=== PATIENT | male | born 1945 | race Hispanic/Latino ===

== ENCOUNTER 2018-07-11 18:17 | Inpatient (IN) | payer OTHER ==
--- NOTE | 2017-07-14 17:00 | NUR ---
REFERRAL TO [facility] PER FAMILY REQUEST, PARMINDER/REFERRAL TO [facility] . PASSR DONE, PENDING TO BE FAXED.
[~2018-07-11] VITALS: Ht 175.3 cm; Wt 80.0 kg
[~2018-07-11 18:17] MED LIST: EPINEPHRINE 0.1 MG/ML 10 ML SYG IVP ONE
[2018-07-11 18:56] LABS: BASOPHILS % (AUTO) 1.8 % (0.0-5.0); EOSINOPHILS % (AUTO) 0.6 % (0.0-8.0); HEMATOCRIT 44.9 % (42-54); LYMPHOCYTES % (AUTO) 16.9 % (21.0-51.0); MEAN CORPUSCULAR HEMOGLOBIN 35.4 pg (27.0-33.0); MEAN CORPUSCULAR HGB CONC 34.2 g/dL (32.0-36.0); MEAN CORPUSCULAR VOLUME 103.4 fL (79-99); MONOCYTES % (AUTO) 4.4 % (3.0-13.0); NEUTROPHILS % (AUTO) 76.3 % (40.0-77.0); NUCLEATED RED BLOOD CELLS 0.1 % (0.0-0.19); PLATELET COUNT (AUTO) 88 K/uL (130-400); RED BLOOD CELL COUNT(AUTO) 4.34 MIL/uL (4.50-6.20); RED CELL DISTRIBUTION WIDTH 15.5 % (11.0-15.5); WHITE BLOOD COUNT (AUTO) 7.7 K/uL (4.8-10.8)
[2018-07-11 19:08] LABS: CARBON DIOXIDE 26 mmol/L (21-32); CHLORIDE 111 mmol/L (101-111); CREATININE 0.8 mg/dL (0.5-1.5); GLOMERULAR FILTR. RATE CALC 101 mL/min (>60); GLUCOSE,RANDOM 235 mg/dL (70-105); POTASSIUM 3.3 mmol/L (3.5-5.1); SODIUM SERUM 147 mmol/L (136-145); UREA NITROGEN, BLOOD 14 mg/dL (7-18)
[2018-07-11 19:09] LABS: INR 1.4 (0.85-1.15); PARTIAL THROMBOPLASTIN TIME 30.3 SEC (26.3-35.5); PROTHROMBIN TIME 14.6 SEC (9.6-11.6)
[2018-07-11 19:29] LABS: ALANINE AMINOTRANSFERASE 18 U/L (12-78); ALBUMIN 2.3 g/dL (3.5-5.0); ASPARTATE AMINOTRANSFERASE 34 U/L (10-37); BILIRUBIN,TOTAL 3.4 mg/dL (0.2-1.0); CREATINE KINASE, TOTAL 37 U/L (21-232); MYOGLOBIN 28 ng/mL (10-92); TOTAL PROTEIN, SERUM 6.7 g/dL (6.0-8.3); TROPONIN I < 0.04 ng/mL (0.00-0.06)
[2018-07-11] MEDS ORDERED: LEVOFLOXACIN 500 MG/D5W 100 ML 100 ML ONE (19:44)
[2018-07-11] MEDS ORDERED: ACETAMINOPHEN 650 MG SUPPOSITORY RC ONE (21:21)
[2018-07-11] MEDS ORDERED: LACTULOSE 20 GM/30 ML UDCUP ONE (21:21)
[2018-07-11 21:50] LABS: APPEARANCE,URINE Clear (CLEAR); BILIRUBIN,URINE Negative (NEGATIVE); COLOR,URINE Yellow (YELLOW); GLUCOSE, URINE (UA) >=1000 mg/dL (NEGATIVE); KETONES,URINE Negative (NEGATIVE); LEUKOCYTE ESTERASE ,URINE Small (NEGATIVE); NITRATE,URINE Negative (NEGATIVE); OCCULT BLOOD,URINE Moderate (NEGATIVE); PH,URINE 6.5 (5.0-8.0); PROTEIN,URINE Negative (NEGATIVE)
[2018-07-11 21:59] LABS: BACTERIA,URINE Rare /HPF (None Seen); RBC,URINE 26-50 /HPF (0-1); YEAST,URINE BUDDING Rare /HPF (None Seen)
[2018-07-11 22:02] LABS: SQUAMOUS EPITHELIAL CELL,UR Rare /HPF (0-2)
[2018-07-11] MEDS ORDERED: CEFTRIAXONE SODIUM 1 GM ONE (22:45)
[2018-07-11] MEDS ORDERED: POTASSIUM CHLORIDE 20MEQ/100ML 100 ML IV PRN (23:45)
[2018-07-11] MEDS ORDERED: GLUCAGON 1MG KIT 1 MG ML IM PRN (23:45)
[2018-07-11] MEDS ORDERED: LIDOCAINE HCL-MPF 1% 2ML VIAL IVP PRN (23:45)
[2018-07-11] MEDS ORDERED: DEXTROSE 50%-WATER 50 ML DISP.SYRIN IV PRN (23:45)
[2018-07-11] MEDS ORDERED: MAGNESIUM 2GM PREMIX 50ML 50 ML IV PRN (23:45)
[2018-07-11] MEDS: SODIUM CHLORIDE 0.9% 1000ML 1,000 ML IV SCH (23:48)
[2018-07-12] MEDS ORDERED: LACTULOSE 20 GM/30 ML UDCUP GT SCH
[2018-07-12] MEDS ORDERED: ACETAMINOPHEN ELIXIR 650 MG/20.3 ML UDCUP PEG PRN
[2018-07-12] MEDS ORDERED: ONDANSETRON HCL 4 MG/2 ML VIAL IV PRN
[2018-07-12] MEDS ORDERED: ZOSYN 3.375GM+NS 50ML 50 ML IV ONE ×2 (00:26→08:16)
[2018-07-12 01:23] LABS: HEMOGLOBIN A1C 5.3 % (4.0-6.0)
[2018-07-12] MEDS ORDERED: MAGNESIUM 2GM PREMIX 50ML 50 ML IV ONE (03:39)
[2018-07-12] MEDS ORDERED: ACETAMINOPHEN ELIXIR 650 MG/20.3 ML UDCUP ONE (06:28)
[2018-07-12] MEDS ORDERED: LACTULOSE 20 GM/30 ML UDCUP ONE ×3 (06:28→16:24)
[2018-07-12 06:44] LABS: HEMATOCRIT 42.5 % (42-54); MEAN CORPUSCULAR HEMOGLOBIN 35.7 pg (27.0-33.0); MEAN CORPUSCULAR HGB CONC 34.9 g/dL (32.0-36.0); MEAN CORPUSCULAR VOLUME 102.1 fL (79-99); PLATELET COUNT (AUTO) 79 K/uL (130-400); RED BLOOD CELL COUNT(AUTO) 4.16 MIL/uL (4.50-6.20); RED CELL DISTRIBUTION WIDTH 15.7 % (11.0-15.5); WHITE BLOOD COUNT (AUTO) 6.8 K/uL (4.8-10.8)
[2018-07-12 06:52] LABS: ALBUMIN 2.2 g/dL (3.5-5.0); BILIRUBIN,TOTAL 3.1 mg/dL (0.2-1.0); CREATININE 0.7 mg/dL (0.5-1.5); MAGNESIUM 2.4 mg/dL (1.80-2.40); TOTAL PROTEIN, SERUM 6.4 g/dL (6.0-8.3)
[2018-07-12 06:57] LABS: POTASSIUM 2.9 mmol/L (3.5-5.1)
[2018-07-12] MEDS ORDERED: LIDOCAINE HCL-MPF 1% 2ML VIAL ONE ×2 (06:58→12:01)
[2018-07-12] MEDS ORDERED: POTASSIUM CHLORIDE 10MEQ/100ML 100 ML IV ONE ×2 (06:58→08:46)
[2018-07-12 07:31] LABS: BASOPHILS % (MANUAL) 1 % (0-2); LYMPHOCYTES % (MANUAL) 12 % (22-44); MAN.DIFF COMMENT-IMPRESSION MANUAL DIFFERENTIAL; MONOCYTES % (MANUAL) 7 % (2-9); REACTIVE LYMPHOCYTES 1 % (0-0); SEGMENTED NEUTROPHILS % 79 % (40-70)
[2018-07-12 07:32] LABS: PLATELET MORPHOLOGY COMMENT DECREASED
[2018-07-12] MEDS ORDERED: FAMOTIDINE/PF 20 MG/2 ML VIAL IV ONE (08:17)
[2018-07-12] MEDS: FAMOTIDINE/PF 20 MG/2 ML VIAL IV SCH ×2 (09:00→20:31)
[2018-07-12] MEDS ORDERED: LACTULOSE 20 GM/30 ML UDCUP PO STA (09:57)
--- NOTE | 2018-07-12 11:50 | NUR ---
[facility] [place] Pt is extremely hard of learing. EUN called daughter Silvana Gamble [phone]. Silvana states she is MPOA, and pt lives with her. Eun requested copy of MPOA for chart, daughter to provide. Daughter states pt is over income for provider services, and she is primary caregiver for pt. Pt reports pt is bed bound and she requires assist to get pt out of bed for showers or w/c. Daughter states pt was supposed to start PT with [facility] today. Daughter now requesting [place] pt qual[place]. pt has walker, w/c, shwr chr, bsc,hospital bed, nebulizer. CM to follow and assist with placement if pt qualifies Addendum: 07/12/18 at 1154 by ALONSO PATTERSON Amended: Links added.
[2018-07-12] MEDS ORDERED: IPRATROPIUM/ALBUTEROL SULFATE 3 ML SOLUTION IH ONE ×2 (11:51→18:07)
[2018-07-12] MEDS ORDERED: POTASSIUM CHLORIDE 20MEQ/100ML 100 ML IV ONE (12:02)
[2018-07-12] MEDS ORDERED: LACT10SO9 PEG (13:44)
[2018-07-12 17:07] VITALS: BP 132/81
[2018-07-12] MEDS: INSULIN HUMULIN R 100 UNIT/ML 3ML SQ SCH (18:00)
--- NOTE | 2018-07-12 18:25 | NUR ---
Nutrition Intervention: Nutrition notification for tf recommendations. Pt admitted for hepatic encephalopathy, UTI. Recommendations: Suplena @ 45ml/hr with 130ml flush Q6H. GONZALO to continue monitoring pt's nutritional status for continued intervention. Addendum: 07/12/18 at [address] Amended: Links added.
[2018-07-12] MEDS: ZOSYN 3.375GM+NS 50ML 50 ML IV SCH (18:44)
[2018-07-12] MEDS: LACTULOSE 20 GM/30 ML UDCUP GT SCH ×2 (18:44→20:32)
--- NOTE | 2018-07-12 18:47 | NUR ---
TF preferences: Spoke to pt's daughter about RD recommendations. Pt's daughter prefers pt stays on home formula as it is organic and has been the only formula that keeps his blood sugars stable. RD reviewed pt's home formula, appropriate for pt. RD has encouraged daughter to give pt 4 cans a day instead of 3 cans a day as she has been doing. Pt with protein energy malnutrition.
[2018-07-12 20:00] VITALS: BP 133/76
[2018-07-12] MEDS: IPRATROPIUM/ALBUTEROL SULFATE 3 ML SOLUTION IH SCH (23:37)
[2018-07-13 00:18] VITALS: BP 138/92
[2018-07-13] MEDS: ZOSYN 3.375GM+NS 50ML 50 ML IV SCH ×3 (00:49→18:17)
[2018-07-13] MEDS: LACTULOSE 20 GM/30 ML UDCUP GT SCH ×6 (00:50→21:13)
[2018-07-13] MEDS: INSULIN HUMULIN R 100 UNIT/ML 3ML SQ SCH ×4 (00:56→18:26)
[2018-07-13 04:00] VITALS: BP 141/97
[2018-07-13 05:10] LABS: HEMATOCRIT 43.1 % (42-54); MEAN CORPUSCULAR HEMOGLOBIN 35.7 pg (27.0-33.0); MEAN CORPUSCULAR HGB CONC 34.4 g/dL (32.0-36.0); MEAN CORPUSCULAR VOLUME 103.6 fL (79-99); PLATELET COUNT (AUTO) 96 K/uL (130-400); RED BLOOD CELL COUNT(AUTO) 4.16 MIL/uL (4.50-6.20); RED CELL DISTRIBUTION WIDTH 15.9 % (11.0-15.5); WHITE BLOOD COUNT (AUTO) 5.5 K/uL (4.8-10.8)
[2018-07-13 05:30] LABS: ALBUMIN 2.4 g/dL (3.5-5.0); BILIRUBIN,DIRECT 0.4 mg/dL (0.0-0.3); BILIRUBIN,TOTAL 2.9 mg/dL (0.2-1.0); TOTAL PROTEIN, SERUM 7.2 g/dL (6.0-8.3)
[2018-07-13] MEDS: SODIUM CHLORIDE 0.9% 1000ML 1,000 ML IV SCH ×2 (06:33→21:14)
[2018-07-13] MEDS: IPRATROPIUM/ALBUTEROL SULFATE 3 ML SOLUTION IH SCH ×4 (06:47→23:52)
[2018-07-13 07:59] LABS: POTASSIUM 3.4 mmol/L (3.5-5.1)
[2018-07-13 08:14] VITALS: BP 139/92
[2018-07-13] MEDS: FAMOTIDINE/PF 20 MG/2 ML VIAL IV SCH ×2 (09:04→21:14)
[2018-07-13 11:17] VITALS: BP 147/87
[2018-07-13 16:50] VITALS: BP 125/71
[2018-07-13 19:35] VITALS: BP 118/83
[2018-07-14] VITALS: BP 139/76
[2018-07-14] MEDS: LACTULOSE 20 GM/30 ML UDCUP GT SCH ×7 (00:12→23:55)
[2018-07-14] MEDS: ZOSYN 3.375GM+NS 50ML 50 ML IV SCH ×4 (00:12→23:56)
[2018-07-14 04:00] VITALS: BP 135/88
[2018-07-14 05:05] LABS: BASOPHILS % (AUTO) 0.4 % (0.0-5.0); EOSINOPHILS % (AUTO) 1.4 % (0.0-8.0); HEMATOCRIT 44.5 % (42-54); LYMPHOCYTES % (AUTO) 20.7 % (21.0-51.0); MEAN CORPUSCULAR HEMOGLOBIN 35.5 pg (27.0-33.0); MEAN CORPUSCULAR HGB CONC 34.1 g/dL (32.0-36.0); MEAN CORPUSCULAR VOLUME 104.3 fL (79-99); MONOCYTES % (AUTO) 8.3 % (3.0-13.0); NEUTROPHILS % (AUTO) 69.2 % (40.0-77.0); PLATELET COUNT (AUTO) 88 K/uL (130-400); RED BLOOD CELL COUNT(AUTO) 4.27 MIL/uL (4.50-6.20); WHITE BLOOD COUNT (AUTO) 5.6 K/uL (4.8-10.8)
[2018-07-14 05:14] LABS: POTASSIUM 3.6 mmol/L (3.5-5.1)
[2018-07-14] MEDS: INSULIN HUMULIN R 100 UNIT/ML 3ML SQ SCH ×4 (06:02→18:05)
[2018-07-14] MEDS: IPRATROPIUM/ALBUTEROL SULFATE 3 ML SOLUTION IH SCH ×4 (06:36→23:19)
[2018-07-14 08:00] VITALS: BP 131/89
[2018-07-14] MEDS: FAMOTIDINE/PF 20 MG/2 ML VIAL IV SCH ×2 (09:56→22:05)
[2018-07-14 12:00] VITALS: BP 128/94
[2018-07-14] MEDS: THIAMINE HCL 100 MG/ML 2ML VIAL IVP SCH (15:11)
[2018-07-14] MEDS: DEXTROSE 5%-WATER 1,000 ML IV SCH (15:12)
[2018-07-14 16:00] VITALS: BP 126/79
--- NOTE | 2018-07-14 18:44 | NUR ---
Nutrition f/u: Pt continues on PEG tube feedings with home formula. Pt with elevated blood sugars-a concern that pt's daughter had since admission. Pt's daughter not available to speak with however RD spoke to Nurse Donta, reports elevated BS are d/t conflicting schedule in feeding regimen and blood sugar checks. Pt's daughter educated on blood sugars, feeding schedule to be changed. Pt with elevated Na, currently on 250ml flush Q6H. Pt may benefit from 250ml flush Q4H. RD to continue monitoring pt's nutritional status. Addendum: 07/14/18 at [address] RD Amended: Links added.
[2018-07-14 20:00] VITALS: BP 137/84
[2018-07-15] VITALS: BP 131/92
[2018-07-15] MEDS: INSULIN HUMULIN R 100 UNIT/ML 3ML SQ SCH ×5 (00:39→23:48)
[2018-07-15] MEDS: DEXTROSE 5%-WATER 1,000 ML IV SCH ×2 (00:40→15:55)
[2018-07-15] MEDS: LACTULOSE 20 GM/30 ML UDCUP GT SCH ×6 (04:04→23:40)
[2018-07-15 05:16] LABS: BASOPHILS % (AUTO) 0.5 % (0.0-5.0); EOSINOPHILS % (AUTO) 3.6 % (0.0-8.0); HEMATOCRIT 43.8 % (42-54); LYMPHOCYTES % (AUTO) 25.8 % (21.0-51.0); MEAN CORPUSCULAR HEMOGLOBIN 35.4 pg (27.0-33.0); MEAN CORPUSCULAR HGB CONC 33.1 g/dL (32.0-36.0); MEAN CORPUSCULAR VOLUME 106.8 fL (79-99); MONOCYTES % (AUTO) 7.6 % (3.0-13.0); NEUTROPHILS % (AUTO) 62.5 % (40.0-77.0); PLATELET COUNT (AUTO) 99 K/uL (130-400); RED CELL DISTRIBUTION WIDTH 16.7 % (11.0-15.5); WHITE BLOOD COUNT (AUTO) 6.5 K/uL (4.8-10.8)
[2018-07-15 05:31] LABS: ALBUMIN 2.2 g/dL (3.5-5.0); BILIRUBIN,TOTAL 1.9 mg/dL (0.2-1.0); CREATININE 1.8 mg/dL (0.5-1.5); MAGNESIUM 1.9 mg/dL (1.80-2.40); PHOSPHORUS 2.5 mg/dL (2.5-4.9); POTASSIUM 3.6 mmol/L (3.5-5.1); TOTAL PROTEIN, SERUM 6.6 g/dL (6.0-8.3); URIC ACID 3.8 mg/dL (2.6-7.2)
[2018-07-15] MEDS: IPRATROPIUM/ALBUTEROL SULFATE 3 ML SOLUTION IH SCH ×3 (06:12→19:29)
[2018-07-15 07:30] VITALS: BP 108/66
[2018-07-15 08:00] VITALS: BP 129/96
[2018-07-15] MEDS: ZOSYN 3.375GM+NS 50ML 50 ML IV SCH ×3 (10:59→23:40)
[2018-07-15] MEDS: THIAMINE HCL 100 MG/ML 2ML VIAL IVP SCH (11:01)
[2018-07-15] MEDS: FAMOTIDINE/PF 20 MG/2 ML VIAL IV SCH ×2 (11:01→22:01)
[2018-07-15 12:00] VITALS: BP 137/102
[2018-07-15] MEDS: RIFAXIMIN 550 MG TABLET PO SCH ×2 (12:57→22:01)
[2018-07-15 16:00] VITALS: BP 130/89
[2018-07-15 20:00] VITALS: BP 143/92
[2018-07-15] MEDS ORDERED: RIFAXIMIN 200 MG TABLET PO SCH (21:00)
[2018-07-16] MEDS: IPRATROPIUM/ALBUTEROL SULFATE 3 ML SOLUTION IH SCH ×2 (00:01→06:11)
[2018-07-16 00:18] VITALS: BP 145/94
[2018-07-16] MEDS: LACTULOSE 20 GM/30 ML UDCUP GT SCH ×2 (03:18→04:00)
[2018-07-16] MEDS ORDERED: MORPHINE SULFATE 2 MG/ML 1ML SYG ONE (03:56)
[2018-07-16 04:00] VITALS: BP 111/85
[2018-07-16] MEDS ORDERED: MORPHINE SULFATE 2 MG/ML 1ML SYG IVP PRN (04:00)
[2018-07-16] MEDS ORDERED: LABETALOL 20 MG/4 ML DISP.SYRIN IV SCH (05:00)
[2018-07-16] MEDS: DEXTROSE 5%-WATER 1,000 ML IV SCH (05:15)
[2018-07-16 05:35] LABS: APPEARANCE,URINE Turbid (CLEAR); BILIRUBIN,URINE Negative (NEGATIVE); COLOR,URINE Dark Yellow (YELLOW); GLUCOSE, URINE (UA) Negative (NEGATIVE); KETONES,URINE Trace mg/dL (NEGATIVE); LEUKOCYTE ESTERASE ,URINE Large (NEGATIVE); NITRATE,URINE Positive (NEGATIVE); OCCULT BLOOD,URINE Large (NEGATIVE); PROTEIN,URINE 300 mg/dL (NEGATIVE); UROBILINOGEN,URINE 0.2 mg/dL (0.2-1.0)
[2018-07-16 05:37] LABS: BACTERIA,URINE Moderate /HPF (None Seen); RBC,URINE 26-50 /HPF (0-1); WBC,URINE TNTC /HPF (0-1); YEAST,URINE BUDDING Many /HPF (None Seen)
[2018-07-16] MEDS: INSULIN HUMULIN R 100 UNIT/ML 3ML SQ SCH (06:10)
--- NOTE | 2018-07-16 06:52 | NUR ---
Re: Family notification of pt coded Phoned daughter Silvana Gamble # [phone] made aware that pt is currently being coded, not doing well, stated she will be coming in, code team made aware.
[2018-07-16 06:59] LABS: CREATININE 2.6 mg/dL (0.5-1.5); POTASSIUM 3.5 mmol/L (3.5-5.1)
[2018-07-16] MEDS ORDERED: NALOXONE HCL 0.4 MG/1 ML ML ONE (07:05)
--- NOTE | 2018-07-16 07:06 | NUR ---
HOSPITALIST (DR. VALADEZ) NOTIFIED OF CODE BLUE DUE TO ASYSTOLE A-FIB. CALL FOR ORDERS AT [phone].
[2018-07-16 07:15] LABS: BASOPHILS % (AUTO) 0.3 % (0.0-5.0); EOSINOPHILS % (AUTO) 0.1 % (0.0-8.0); HEMATOCRIT 51.8 % (42-54); LYMPHOCYTES % (AUTO) 13.2 % (21.0-51.0); MEAN CORPUSCULAR HEMOGLOBIN 35.6 pg (27.0-33.0); MEAN CORPUSCULAR HGB CONC 32.8 g/dL (32.0-36.0); MEAN CORPUSCULAR VOLUME 108.5 fL (79-99); MONOCYTES % (AUTO) 6.4 % (3.0-13.0); NUCLEATED RED BLOOD CELLS 0.1 % (0.0-0.19); PLATELET COUNT (AUTO) 144 K/uL (130-400); RED BLOOD CELL COUNT(AUTO) 4.78 MIL/uL (4.50-6.20); RED CELL DISTRIBUTION WIDTH 16.3 % (11.0-15.5); WHITE BLOOD COUNT (AUTO) 12.2 K/uL (4.8-10.8)
[2018-07-16] MEDS ORDERED: EPINEPHRINE 0.1 MG/ML 10 ML SYG IVP SCH (07:30)
[2018-07-16] MEDS ORDERED: EPINEPHRINE 2 MG in DEXTROSE 5%-WATER 250 ML IV PRN (07:30)
--- NOTE | 2018-07-16 07:40 | NUR ---
Suction assessement: copious thin yellow from oropharynx Addendum: 07/16/18 at 0803 by [address]LE [address]D RT Amended: Links added.
[2018-07-16 07:42] LABS: ABG BASE EXCESS -22.4 mmol/L (-2.0-3.0); ABG HCO3 9.3 mmol/L (21.0-28.0); ABG OXYGEN SATURATION 97.7 % (95.0-99.0); ABG PCO2 42 mmHg (35-48)
[2018-07-16 08:00] VITALS: BP 93/32
--- NOTE | 2018-07-16 08:00 | NUR ---
ASSUMED CARE OF PATIENT S/P CODE BLUE- UNRESPONSIVE. VENTED. INCONTINENT OF STOOL- ABDOMEN DISTENDED. EPINEPHRINE DRIP INFUSING. RT FOREARM IV STARTED BY VANI DOZIER . PATENT. NICK SETTER APPLIED. WEAK PULSES. SINUS TACHYCARDIA.
--- NOTE | 2018-07-16 08:10 | NUR ---
DAUGHTER AND SON SILVER AT BEDSIDE. EXPRESS DNR AND COMFORT MEASURES ONLY- NO LAB DRAWS. CONSIDERING WITHDRAWAL OF LIFE SUPPORT.
--- NOTE | 2018-07-16 08:13 | NUR ---
At 0639 take morphin 2mg for the patient. Patient is complaining pain. TESS Varela also in the room giving the morning care. Before administering the medicine patient's mental status changed and looks more lethargic and non responsive. Instructed to TESS Varela to call the kettle operator head and activate rapid response. Other staff in the floor arrived in the room. Checked the rhythm and no pulse felt and called the robel blue. Robel blue team arrived and taken over the management of the care of the patient. Patient resuscitated around 0720 and transferred the patient on epinephrine drip to ICU. Room 217 assigned and report given to JACOBY Henriquez at ICU
[2018-07-16 08:15] VITALS: BP 40/25
--- NOTE | 2018-07-16 08:15 | NUR ---
DR VALADEZ SPOKE TO DAUGHTER ODILON JANE . DNR/COMFORT MEASURES ONLY. DAUGHTER WANTS TO HAVE OTHER FAMILY ARRIVE BEFORE WITHDRAWAL
--- NOTE | 2018-07-16 08:25 | NUR ---
REJI NOTIFIED- REFERENCE # [id number]- ELIGIBLE FOR ORGAN DONATION PER SCREEN-
[2018-07-16 08:30] VITALS: BP 35/19
--- NOTE | 2018-07-16 08:40 | NUR ---
REJI CALLED BACK -PT DECLINING AND STILL ON VENT- NO CALL BACK FROM COORDINATOR YET
--- NOTE | 2018-07-16 08:50 | NUR ---
ORGAN COORDINATOR NIYAH JENSEN [facility] CALLED AND NOTIFIED OF PATIENT ASYSTOLE AND ON VENT STILL. RULED OUT FOR ORGAN DONATION
--- NOTE | 2018-07-16 08:56 | NUR ---
PT - PRONOUNCED AT BEDSIDE BY DR VALADEZ. FAMILY CONSOLED
--- NOTE | 2018-07-16 09:00 | NUR ---
Pt while on vent & pronounced at 0856. Ventilator turned off by Martinez DOZIER.
--- NOTE | 2018-07-16 09:12 | NUR ---
REJI NOTIFIED OF TIME OF - PT DECLINED FOR TISSUE AND ORGAN DONATION PER SAJAN MENDOZA BATTER SCALER
--- NOTE | 2018-07-16 10:00 | NUR ---
POST MORTEM CARE PROVIDED- ET TUBE REMOVED. IV LINES REMOVED. WASHED- PATIENT COMPANION SERVICES OFFERED. FAMILY SAYS PATIENT COMPANION NOT EMERGENTLY NECESSARY. FAMILY ALLOWED TO BE AT BEDSIDE ONCE POSTMORTEM CARE COMPLETED
--- NOTE | 2018-07-16 10:42 | NUR ---
JOSE DE JESUS LEE
== END 2018-07-16 08:56 | disposition expired | DRG 871 ==
LOC: EDH 18:17 → EDHIP 23:10 → 3AH 07-12 16:48 → 2CH 07-16 07:46
PROVIDERS: ADMIT Internal Medicine; ATTEND Internal Medicine
PROC: 0BH17EZ Insertion of Endotracheal Airway into Trachea, Via Natural or Artificial Opening (ICD-10-PCS; principal; 2018-07-16)
PROC: 5A1935Z Respiratory Ventilation, Less than 24 Consecutive Hours (ICD-10-PCS; 2018-07-16)
PROC: 5A12012 Performance of Cardiac Output, Single, Manual (ICD-10-PCS; 2018-07-16)
DX: A41.9 Sepsis, unspecified organism (principal); E43 Unspecified severe protein-calorie malnutrition; N39.0 Urinary tract infection, site not specified; D68.4 Acquired coagulation factor deficiency; E87.0 Hyperosmolality and hypernatremia; N17.9 Acute kidney failure, unspecified; R65.20 Severe sepsis without septic shock; K72.90 Hepatic failure, unspecified without coma; K74.60 Unspecified cirrhosis of liver; L89.312 Pressure ulcer of right buttock, stage 2; L89.322 Pressure ulcer of left buttock, stage 2; E87.6 Hypokalemia; D64.9 Anemia, unspecified; D69.59 Other secondary thrombocytopenia; Z68.26 Body mass index [BMI] 26.0-26.9, adult; Z74.01 Bed confinement status; Z93.1 Gastrostomy status; Z86.73 Personal history of transient ischemic attack (TIA), and cerebral infarction without residual deficits
CPT/HCPCS: 31500; 36415; 36600; 70450; 71045; 74018; 80048; 80053; 80076; 81001; 82140; 82435; 82550; 82803; 82947; 82948; 83036; 83605; 83735; 83874; 83930; 83935; 84100; 84132; 84295; 84300; 84484; 84550; 85018; 85025; 85027; 85610; 85730; 87040; 87088; 87804; 92950; 93005; 94002; 94640; 94664; 97039; 99291; G0378; J0171; J0696; J1815; J1956; J2310; J2543; J3411; J3475; J3480; J3490; J7070